=== PATIENT | female | born 1945 | race Caucasian/White ===

== ENCOUNTER 2017-03-17 18:55 | Emergency (ER) | payer MEDICARE, OTHER ==
[2017-03-17 20:07] LABS: % BASOPHILS 0.1 % (0.0-2.0); % LYMPHOCYTES 11.2 % (20.0-50.0); % MONOCYTES 8.3 % (2.0-10.0); % NEUTROPHILS 80.4 % (40.0-80.0); HEMATOCRIT 35.9 % (41.0-60); HEMOGLOBIN 12.2 gm/dL (12-16); MEAN CELL VOLUME 89.8 fl (81-100); MEAN CORPUSCULAR HEMOGLOBIN 30.5 pg (27.0-31.0); MEAN PLATELET VOLUME 8.1 fl; PLATELET COUNT 181 Th/cmm (150-400); WHITE BLOOD COUNT 11.2 Th/cmm (4.8-10.8)
[2017-03-17 20:20] LABS: INR 0.89 (0.5-1.4); PROTHROMBIN TIME (TEST) 9.1 SECONDS (9.5-11.5)
[2017-03-17 20:23] LABS: ALB/GLOB RATIO 1.2 (1.0-1.8); ALKALINE PHOSPHATASE 101 U/L (34-104); ANION GAP 9.6 (7.0-16.0); BILIRUBIN,TOTAL 0.6 mg/dL (0.3-1.0); BUN - UREA NITROGEN 16 mg/dL (7-25); BUN/CREATININE RATIO 26.7; CALCIUM SERUM 9.5 mg/dL (8.6-10.3); CARBON DIOXIDE 25.9 mEq/L (21.0-31.0); CHLORIDE 100 mEq/L (98-107); CREATININE - SERUM 0.6 mg/dL (0.6-1.2); GLUCOSE 150 mg/dL (70-105); POTASSIUM SERUM 3.5 mEq/L (3.5-5.1); SGOT 24 U/L (13-39); SGPT/ALT 28 U/L (7-52); SODIUM SERUM 132 mEq/L (136-145)
--- NOTE | 2017-03-17 20:27 | ED Physician Chart ---
ED Chief Complaint/HPI - Patient Information Date Seen:: 03/17/17 Time Seen:: 19:13 Chief Complaint:: ABDOMINAL AND RECTAL PAIN History of Present Illness:: THIS IS A 71 YO FEMALE WITH THE SUDDEN ONSET OF FEVER, RECTAL AREA AND LOWER ABDOMINAL PAIN. SHE DENIES VOMITING AND DIARRHEA. SHE DENIES HAVING ANY PREVIOUS ABDOMINAL SURGERY. Allergies:: Allergies Allergy/AdvReac Type Severity Reaction Status Date / Time No Known Allergies Allergy Verified 03/17/17 19:09 Vitals:: Vital Signs - 8 hr 03/17/17 19:10 Temp 99.0 F HR 96 RR 18 BP 146/55 O2 Sat % 98 Historian:: Patient Review:: Nurse's Note Reviewed ED Review of Systems - Review of Systems General/Constitutional: No fever, No chills, No weight loss, No weakness, No diaphoresis, No edema, No loss of appetite Skin: No skin lesions, No rash, No bruising Head: No headache, No light-headedness Eyes: No loss of vision, No pain, No diplopia ENT: No earache, No nasal drainage, No sore throat, No tinnitus Neck: No neck pain, No swelling, No thyromegaly, No stiffness, No mass noted Cardio Vascular: No chest pain, No palpitations, No PND, No orthopnea, No edema Pulmonary: No SOB, No cough, No sputum, No wheezing GI: No nausea, No vomiting, No diarrhea, Pain, No melena, Hematochezia, No constipation, No hematemesis G/U: No dysuria, No frequency, No hematuria Musculoskeletal: No bone or joint pain, No back pain, No muscle pain Endocrine: No polyuria, No polydipsia Psychiatric: No prior psych history, No depression, Anxiety, No anxiety, No suicidal ideation Hematopoietic: No bruising, No lymphadenopathy Allergic/Immuno: No urticaria, No angioedema Neurological: No syncope, No focal symptoms, No weakness, No paresthesia, No headache, No seizure, No dizziness, No confusion, No vertigo ED Past Medical History - Past Medical History Obtainable: Yes Past Medical History: HTN Family History: None Social History: Non Smoker, No Alcohol, No Drug Use Surgical History: None Psychiatricy History: None Family Medical History - Family Member Mother History Unknown: Yes Hx Family Hypertension: Yes ED Physical Exam - Physical Examination General/Constitutional: Awake, Well-developed, well-nourished, Alert, No distress, GCS 15, Non-toxic appearing, Ambulatory Head: Atraumatic Eyes: Lids, conjuctiva normal, PERRL, EOMI Skin: Nl inspection, No rash, No skin lesions, No ecchymosis, Well hydrated, No lymphadenopathy ENMT: External ears, nose nl, Nasal exam nl, Lips, teeth, gums nl Neck: Nontender, Full ROM w/o pain, No JVD, No nuchal rigidity, No bruit, No mass, No stridor Respiratory: Nl effort/Exclusion, Clear to Auscultation, No Wheeze/Rhonchi/Rales Cardio Vascular: RRR, No murmur, gallop, rubs, NL S1 S2 GI: No organomegaly, No hernia, Normal BS's, Nondistended, No mass/bruits, No McBurney tenderness Other GI comments:: THERE IS GENERALIZE TENDERNESS WITH MILD REBOUND. : No CVA tenderness Extremities: No tenderness or effusion, Full ROM, normal strength in all extremities, No edema, Normal digits & nails Neuro/Psych: Alert/oriented, DTR's symmetric, Normal sensory exam, Normal motor strength, Judgement/insight normal, Mood normal, Normal gait, No focal deficits Misc: normal gait, Normal back, No paraspinal tenderness ED Labs/Radiology/EKG Results - Lab Results Results: Laboratory Tests 03/17/17 03/17/17 19:55 19:55 WBC 11.2 H RBC 4.00 Hgb 12.2 Hct 35.9 L MCV 89.8 MCH 30.5 MCHC Differential 34.0 RDW 12.0 Plt Count 181 MPV 8.1 Neutrophils % 80.4 H Lymphocytes % 11.2 L Monocytes % 8.3 Eosinophils % 0.0 Basophils % 0.1 PT 9.1 L INR 0.89 PTT (Actin FS) 27.9 - Radiology Results Results: CT OF THE ABDOMEN = NAD CHEST X-RAY = NAD ED Assessment - Assessment General Assessment: HEMATURIA ELEVATED WHITE COUNT ED Septic Shock - . Is Septic Shock (SBP<90, OR Lactate>4 mmol\L) present?: No - <6hrs of presentation: Vital Signs: Vital Signs - 8 hr 03/17/17 19:10 Temp 99.0 F HR 96 RR 18 BP 146/55 O2 Sat % 98 ED Reassessment (Disposition) - Reassessment Reassessment Condition:: Unchanged - Diagnosis Diagnosis:: HEMATURIA ELEVATED WHIE COUNT - Aftercare/Follow up Instructions Aftercare/Follow-Up Instructions:: Counseled pt regarding lab results/diagnosis & need follow up, Refer to Discharge Instructions, Counseled pt & family regarding lab results/diagnosis & need follow up - Patient Disposition Discharge/Transfer:: Home Condition at Disposition:: Improved ED Discharge Plan - Patient Disposition Admit/Discharge/Transfer: PT DISCHARGED HOME Condition at Disposition: Improved Prescriptions: Azithromycin [Zithromax] 250 mg PO DAILY #7 tab Ciprofloxacin HCl [Cipro] 250 mg PO BID #14 tab Instructions: Urinary Tract Infection, [id number] Additional Instructions: FOLLOW UP WITH YOUR DOCTOR IN 2-3 DAYS AND TO COME BACK TO ER IF SYMPTOMS WORSEN.TAKE YOUR MEDICATIONS PRESCRIBED
[2017-03-17 21:19] LABS: URINE BILIRUBIN NEGATIVE (NEGATIVE); URINE BLOOD TRACE (NEGATIVE); URINE GLUCOSE (UA) NEGATIVE (NEGATIVE); URINE KETONE NEGATIVE (NEGATIVE); URINE PH 6.5 (4.6 - 8.0); URINE PROTEIN TRACE mg/dL (NEGATIVE)
[2017-03-17 21:22] LABS: URINE COLOR ORANGE
[2017-03-17 21:23] LABS: URINE BACTERIA OCCASIONAL /hpf (NONE SEEN); URINE EPITHELIAL CELLS FEW /lpf (FEW)
--- NOTE | 2017-03-18 08:14 | Diagnostic Imaging Report ---
CT scan of the abdomen and pelvis without intravenous contrast History: Pain Total DLP equals 531 CTDI equals 11.2 Axial sections were obtained from the xiphoid process down to the pubic symphysis. The liver demonstrates a normal size and contour. No focal lesions are seen. The spleen appears normal. No abnormalities are seen in the region of the pancreas. The kidneys appear normal bilaterally. The exam of the pelvis demonstrates preservation of normal fat planes. No abnormal soft tissue masses. No abnormal fluid collections. Degenerative changes noted throughout the spine. Mild atherosclerotic calcification seen in the aorta. Impression: 1. No acute abnormalities 2. Mild atherosclerotic vascular changes 3. Degenerative changes through the spine
--- NOTE | 2017-03-18 08:41 | Diagnostic Imaging Report ---
Portable chest x-ray History: Shortness of breath Allowing for portable technique the heart size is normal. No focal pulmonary parenchymal processes. No hilar or mediastinal abnormalities. Impression: No acute abnormalities.
== END 2017-03-17 22:25 | disposition home or self-care (01) ==
LOC: ER 18:55
DX: R10.30 Lower abdominal pain, unspecified (principal); K62.89 Other specified diseases of anus and rectum; I10 Essential (primary) hypertension
CPT/HCPCS: 99285; 96372; 71010; 74176; 84484; 36415; 86592; 85025; 85610; 85730; 81001; 80053; 87040 ×2; J0696

== ENCOUNTER 2019-03-04 14:12 | Emergency (ER) | payer MEDICARE ==
[2019-03-04] MEDS ORDERED: Sodium Chloride 0.9% 1,000 ML IV ONE (14:33)
--- NOTE | 2019-03-04 14:40 | ED Physician Chart ---
ED Chief Complaint/HPI - Patient Information Date Seen:: 03/04/19 Time Seen:: 14:25 Chief Complaint:: vomiting and abdominal pain History of Present Illness:: Patient's had vomiting 5 times since 1300 today. No diarrhea. Patient has epigastric pain. No chills or fever. Allergies:: Allergies Allergy/AdvReac Type Severity Reaction Status Date / Time No Known Allergies Allergy Verified 03/17/17 19:09 Vitals:: Vital Signs - 8 hr 03/04/19 14:24 Temp 98.4 F HR 93 RR 17 BP 105/66 O2 Sat % 96 Historian:: Patient Review:: Nurse's Note Reviewed ED Review of Systems - Review of Systems General/Constitutional: No fever, No chills Skin: No skin lesions Head: No headache Eyes: No loss of vision ENT: No earache Neck: No neck pain, No swelling Cardio Vascular: No chest pain, No palpitations Pulmonary: No SOB GI: Vomiting, No diarrhea Musculoskeletal: No bone or joint pain Endocrine: No polyuria Psychiatric: No prior psych history ED Past Medical History - Past Medical History Past Medical History: HTN Family History: None Social History: Non Smoker, No Alcohol Surgical History: None Psychiatricy History: None Medication: Reviewed Family Medical History - Family Member Mother History Unknown: Yes Hx Family Hypertension: Yes ED Physical Exam - Physical Examination General/Constitutional: Awake, Well-developed, well-nourished, Alert, No distress Head: Atraumatic Eyes: Lids, conjuctiva normal, PERRL Skin: Nl inspection, No rash, No skin lesions, No ecchymosis ENMT: External ears, nose nl, Nasal exam nl, Lips, teeth, gums nl Neck: No nuchal rigidity Respiratory: Nl effort/Exclusion, Clear to Auscultation Cardio Vascular: RRR, No murmur, gallop, rubs GI: No organomegaly, No hernia, Normal BS's, Nondistended, No mass/bruits, No McBurney tenderness Other GI comments:: Epigastric tenderness; milder right upper quadrant tenderness Extremities: Normal digits & nails Neuro/Psych: No focal deficits ED Assessment - Assessment General Assessment: At 1550 patient feels better.. At 1615 patient had mild epigastric pain. Abdomen was soft without guarding. ED Septic Shock - . Is Septic Shock (SBP<90, OR Lactate>4 mmol\L) present?: No - <6hrs of presentation: Vital Signs: Vital Signs - 8 hr 03/04/19 14:24 Temp 98.4 F HR 93 RR 17 BP 105/66 O2 Sat % 96 ED Reassessment (Disposition) - Reassessment Reassessment Condition:: Improved - Diagnosis Diagnosis:: Gastritis with vomiting; diabetes; hyperglycemia - Aftercare/Follow up Instructions Aftercare/Follow-Up Instructions:: Refer to Discharge Instructions - Patient Disposition Discharge/Transfer:: Home Condition at Disposition:: Stable, Improved
[2019-03-04 14:45] LABS: HEMOGLOBIN 12.6 gm/dL (12-16)
[2019-03-04 14:50] LABS: HEMATOCRIT 36.7 % (41.0-60); MEAN CELL VOLUME 89.3 fl (81-100); MEAN CORPUSCULAR HEMOGLOBIN 30.6 pg (27.0-31.0); MEAN CORPUSCULAR HGB CONC 34.3 pg (28.0-36.0); PLATELET COUNT 221 Th/cmm (150-400); RED BLOOD COUNT 4.11 Mil/cmm (3.80-5.20); RED CELL DISTRIBUTION WIDTH 11.9 % (11.5-20.0); WHITE BLOOD COUNT 10.2 Th/cmm (4.8-10.8)
[2019-03-04 14:59] LABS: ANION GAP 12.8 (7.0-16.0); BUN - UREA NITROGEN 27 mg/dL (7-25); CALCIUM SERUM 9.6 mg/dL (8.6-10.3); CARBON DIOXIDE 26.3 mEq/L (21.0-31.0); CHLORIDE 105 mEq/L (98-107); CREATININE - SERUM 0.7 mg/dL (0.6-1.2); GLUCOSE 184 mg/dL (70-105); LIPASE 18 U/L (11-82); POTASSIUM SERUM 3.1 mEq/L (3.5-5.1); SODIUM SERUM 141 mEq/L (136-145)
[2019-03-04 15:16] LABS: BAND NEUTROPHILE 1 % (0-10); BASOPHIL 0 % (0-3); EOSINOPHIL 0 % (0-5); LYMPHOCYTE 8 % (20-50); MONOCYTE 8 % (2-10)
[2019-03-04 15:17] LABS: NEUTROPHILS 83 % (40-80)
[2019-03-04] MEDS ORDERED: Potassium Chloride 20 mEq ER Tab PO ONE ×2 (15:50→16:07)
[2019-03-05 06:07] LABS: A1C 5.6 % (4.8-5.6)
== END 2019-03-04 16:37 | disposition home or self-care (01) ==
LOC: ER 14:12
DX: K29.70 Gastritis, unspecified, without bleeding (principal); E11.65 Type 2 diabetes mellitus with hyperglycemia; I10 Essential (primary) hypertension
CPT/HCPCS: 99283; 96374; 36415; 85007; 85025; 83036; 83690; 80048; J2405; J7030; Z7502